=== PATIENT | male | born 1980 | race Caucasian/White ===

== ENCOUNTER 2019-02-01 11:35 | Emergency (ER) | payer MEDICAID ==
[~2019-02-01] VITALS: Ht 188 cm; Wt 91.0 kg
[2019-02-01] MEDS ORDERED: ALPRAZolam 0.5mg tablet PO ONE (12:35)
[2019-02-01 13:17] VITALS: BP 148/90
== END 2019-02-01 13:19 | disposition home or self-care (01) ==
LOC: ER 11:36
DX: F41.9 Anxiety disorder, unspecified (principal); Z88.8 Allergy status to other drugs, medicaments and biological substances
CPT/HCPCS: 99284

== ENCOUNTER 2019-02-02 15:22 | Emergency (ER) | payer MEDICAID ==
[~2019-02-02] VITALS: Ht 188 cm; Wt 108.0 kg
[2019-02-02 15:26] VITALS: BP 119/83
== END 2019-02-02 17:07 | disposition left against medical advice (07) ==
LOC: ER 15:23
DX: R30.0 Dysuria (principal); R31.9 Hematuria, unspecified; R10.9 Unspecified abdominal pain; Z53.21 Procedure and treatment not carried out due to patient leaving prior to being seen by health care provider